=== PATIENT | male | born 1955 | race African-American/Black ===

== ENCOUNTER 2023-03-10 12:52 | Emergency (ER) | payer OTHER ==
[2023-03-10] MEDS ORDERED: SODIUM CHLORIDE 0.9% 500 ML INFUS.BAG IV ONE (13:48)
[2023-03-10] MEDS ORDERED: ACETAMINOPHEN 1000 MG/100 ML BAG IVPB ONE (13:48)
[2023-03-10] MEDS ORDERED: ONDANSETRON 4 MG/2 ML VIAL IVPUSH ONE (13:48)
[2023-03-10] MEDS ORDERED: FAMOTIDINE 20 MG/50 ML IVPB 20 MG/50 ML MG IVPB ONE ×2 (13:48→14:09)
[2023-03-10] MEDS ORDERED: ONDANSETRON 4 MG/2 ML VIAL ONE (14:09)
[2023-03-10] MEDS ORDERED: ACETAMINOPHEN INJECTION 100 ML IVPB ONE (14:09)
[2023-03-10 14:32] LABS: BASO % 0.5 % (0-2.0); EOS % 0.4 % (0-4.5); HEMATOCRIT 49.5 % (35.4-49); HEMOGLOBIN 16.8 GM/dL (11.7-16.9); LYMPH % 18.4 % (8-40); MCHC 33.9 g/dl (32.0-35.9); MEAN CELL VOLUME 88.5 fl (80-96); MONO % 5.9 % (3.8-10.2); NEUT % 74.8 % (42.8-82.8); RBC 5.59 M/mm3 (4.00-5.60); RDW 15.8 % (11.9-15.9); WHITE BLOOD COUNT 12.6 K/mm3 (4.0-10.0)
[2023-03-10 14:33] LABS: MEAN PLT VOLUME 8.1 fl (7.5-11.1); PLATELET COUNT 259 10^3/uL (134-434)
[2023-03-10 14:45] LABS: POTASSIUM 4.3 mmol/L (3.5-5.1)
[2023-03-10 14:49] LABS: ALBUMIN 4.3 g/dl (3.4-5.0); BLOOD UREA NITROGEN 10.6 mg/dL (7-18); CALCIUM 9.7 mg/dL (8.5-10.1)
[2023-03-10 14:52] LABS: CREATININE 1.4 mg/dL (0.55-1.3); PHOSPHOROUS 3.2 mg/dL (2.5-4.9)
[2023-03-10 14:53] LABS: BILIRUBIN,TOTAL 0.7 mg/dL (0.2-1); TOT PROT 8.9 g/dl (6.4-8.2)
[2023-03-10 15:11] VITALS: BP 139/93; PULSE 77; RESP 20; TEMP 98.3; BMI 30.1
== END 2023-03-10 19:01 | disposition home or self-care (01) ==
LOC: JER 12:52
PROC: 3E033GC Introduction of Other Therapeutic Substance into Peripheral Vein, Percutaneous Approach (ICD-10-PCS; principal; 2023-03-10)
PROC: 3E033GC Introduction of Other Therapeutic Substance into Peripheral Vein, Percutaneous Approach (ICD-10-PCS; 2023-03-10)
PROC: 3E033GC Introduction of Other Therapeutic Substance into Peripheral Vein, Percutaneous Approach (ICD-10-PCS; 2023-03-10)
DX: R53.1 Weakness (principal); R11.10 Vomiting, unspecified; K52.9 Noninfective gastroenteritis and colitis, unspecified
CPT/HCPCS: 36415; 74177-TC; 80053; 83690; 83735; 84100; 85025; 99285-25; Q9967

== ENCOUNTER 2024-03-09 13:11 | Emergency (ER) | payer OTHER ==
[2024-03-09 13:22] VITALS: RESP 16; BMI 26.6
[2024-03-09 14:59] LABS: BASO % 0.9 % (0-2.0); EOS % 0.2 % (0-4.5); HEMATOCRIT 46.4 % (35.4-49); HEMOGLOBIN 15.4 GM/dL (11.7-16.9); LYMPH % 19.4 % (8-40); MCH 29.9 pg (25.7-33.7); MCHC 33.2 g/dl (32.0-35.9); MEAN CELL VOLUME 89.8 fl (80-96); MEAN PLT VOLUME 8.3 fl (7.5-11.1); MONO % 5.3 % (3.8-10.2); NEUT % 74.2 % (42.8-82.8); PLATELET COUNT 416 10^3/uL (134-434); RBC 5.16 M/mm3 (4.00-5.60); RDW 16.1 % (11.9-15.9); WHITE BLOOD COUNT 10.3 K/mm3 (4.0-10.0)
[2024-03-09 15:22] LABS: CHLORIDE 97 mmol/L (98-107); SODIUM 133 mmol/L (136-145)
[2024-03-09 15:24] LABS: CALCIUM 9.7 mg/dL (8.5-10.1)
[2024-03-09 15:25] LABS: ALBUMIN 3.6 g/dl (3.4-5.0); BLOOD UREA NITROGEN 10.9 mg/dL (7-18); CO2 30 mmol/L (21-32); GLUCOSE,RANDOM 101 mg/dL (74-106); MAGNESIUM 2.8 mg/dL (1.8-2.4)
[2024-03-09 15:28] LABS: CREATININE 1.3 mg/dL (0.55-1.3); PHOSPHOROUS 3.8 mg/dL (2.5-4.9); SGOT/AST 59 U/L (15-37)
[2024-03-09 15:29] LABS: BILIRUBIN,TOTAL 0.6 mg/dL (0.2-1)
[2024-03-09 15:30] LABS: ANION GAP 5 mmol/L (4-13); POTASSIUM 6.1 mmol/L (3.5-5.1); SGPT/ALT 23 U/L (13-61); TOT PROT 8.3 g/dl (6.4-8.2)
[2024-03-09] MEDS: ONDANSETRON 4 MG/2 ML VIAL IVPUSH ONE (15:30)
[2024-03-09] MEDS: SODIUM CHLORIDE 0.9% 500 ML INFUS.BAG IV ONE (15:30)
[2024-03-09 15:31] LABS: ALK PHOS 66 U/L (45-117)
[2024-03-09] MEDS ORDERED: LOPERAMIDE HCL 2 MG CAPSULE ONE (16:36)
[2024-03-09] MEDS: LOPERAMIDE HCL 2 MG CAPSULE PO ONE (16:38)
[2024-03-09 16:45] VITALS: BP 128/78; PULSE 77; TEMP 98.4
== END 2024-03-09 16:45 | disposition home or self-care (01) ==
LOC: JER 13:11
PROC: 3E033GC Introduction of Other Therapeutic Substance into Peripheral Vein, Percutaneous Approach (ICD-10-PCS; principal; 2024-03-09)
DX: R11.2 Nausea with vomiting, unspecified (principal); R19.7 Diarrhea, unspecified; Z20.822 Contact with and (suspected) exposure to COVID-19
CPT/HCPCS: 0241U-QW; 36415; 80053; 83735; 84100; 84132; 85025; 99283-25

== ENCOUNTER 2024-10-03 00:14 | Inpatient (IN) | payer OTHER ==
[2024-10-03] MEDS ORDERED: ACETAMINOPHEN INJECTION 100 ML ONE (01:56)
[2024-10-03] MEDS ORDERED: FAMOTIDINE 20 MG/50 ML IVPB 20 MG/50 ML MG IVPB ONE (01:56)
[2024-10-03] MEDS: LACTATED RINGERS SOLUTION 1000 ML INFUS.BAG IV ONE (02:17)
[2024-10-03] MEDS: ACETAMINOPHEN 1000 MG/100 ML BAG IVPB ONE (02:18)
[2024-10-03 02:20] LABS: HEMATOCRIT 36.3 % (40.1-51.0); HEMOGLOBIN 11.5 g/dL (13.7-17.5); MCHC 31.7 g/dl (32.3-36.5); MEAN CELL VOLUME 85.8 fl (79.0-92.2); PLATELET COUNT 491 x10^3/uL (163-337); RDW 17.3 % (12.2-16.4)
[2024-10-03 02:28] LABS: INR 1.59 (0.83-1.09); PROTHROMBIN TIME (PATIENT) 17.3 SEC (9.7-13.0)
[2024-10-03 02:50] LABS: CHLORIDE 99 mmol/L (98-107); POTASSIUM 3.9 mmol/L (3.5-5.1); SODIUM 137 mmol/L (136-145)
[2024-10-03 02:52] LABS: LACTIC ACID 2.2 mmol/L (0.4-2.0)
[2024-10-03 02:53] LABS: CALCIUM 8.8 mg/dL (8.5-10.1)
[2024-10-03 02:54] LABS: ALBUMIN 2.1 g/dl (3.4-5.0); ANION GAP 7 mmol/L (4-13); BLOOD UREA NITROGEN 24.8 mg/dL (7-18); CO2 30 mmol/L (21-32); GLUCOSE,RANDOM 131 mg/dL (74-106); MAGNESIUM 1.7 mg/dL (1.8-2.4)
[2024-10-03 02:56] LABS: SGOT/AST 14 U/L (15-37); SGPT/ALT 13 U/L (13-61)
[2024-10-03 02:58] LABS: BILIRUBIN,TOTAL 0.8 mg/dL (0.2-1); TOT PROT 7.2 g/dl (6.4-8.2)
[2024-10-03 02:59] LABS: ALK PHOS 60 U/L (45-117)
[2024-10-03] MEDS ORDERED: PIPERACILLIN/TAZOB 4.5 GM 4.5 GM/100 ML BAG IVPB ONE (03:12)
[2024-10-03] MEDS ORDERED: VANCOMYCIN 1 GM PREMIX (F) 1 GM/200 ML BAG ONE (03:12)
[2024-10-03] MEDS: FAMOTIDINE 20 MG/50 ML IVPB 20 MG/50 ML MG IVPB ONE (03:23)
[2024-10-03] MEDS: PIPERACILLIN/TAZOBACTAM 4.5 GM VIAL IVPB ONE (05:00)
[2024-10-03 05:08] LABS: EPI CELLS 15 /uL (0-25.1); HYALINE CASTS 2 /uL (0-3.1); PH,URINE 5.5 (5.0-8.0); URINE APPEARANCE CLEAR; URINE BACTERIA 3 /uL (0-1359); URINE BILIRUBIN NEGATIVE (NEGATIVE); URINE COLOR YELLOW; URINE GLUCOSE (UA) 3+ (NEGATIVE); URINE KETONE TRACE (NEGATIVE); URINE LEUK ESTERASE NEGATIVE (NEGATIVE); URINE NITRITE NEGATIVE (NEGATIVE); URINE PROTEIN 1+ (NEGATIVE); URINE RBC 18 /uL (0-23.9); URINE WBC 22 /uL (0-25.8)
[2024-10-03] MEDS: VANCOMYCIN 1,000 MG in DEXTROSE 5%-WATER - 500 ML IVPB ONE (05:35)
[2024-10-03] MEDS ORDERED: ACETAMINOPHEN 325 MG TABLET (FP) ONE (06:37)
[2024-10-03] MEDS: ACETAMINOPHEN 325 MG TABLET (FP) PO ONE (06:40)
[2024-10-03] MEDS: DEXTROSE 5%-0.45% SALINE 1,000 ML IV SCH (07:28)
[2024-10-03] MEDS ORDERED: MAGNESIUM SULFATE IN WATER 2 GM/50 ML IVPB IVPB ONE (07:30)
[2024-10-03] MEDS: MAGNESIUM SULFATE IN WATER 2 GM/50 ML IVPB IVPB ONE (07:31)
[2024-10-03 09:07] LABS: COCAINE, UR NEGATIVE (NEGATIVE); URINE AMPHETAMINES NEGATIVE (NEGATIVE); URINE BARBITURATES NEGATIVE (NEGATIVE); URINE BENZODIAZEPINES NEGATIVE (NEGATIVE)
[2024-10-03 09:08] LABS: OPIATES, URI NEGATIVE (NEGATIVE); PHENCYCLIDINE,URINE NEGATIVE (NEGATIVE)
[2024-10-03 09:10] LABS: METHADONE, UR POSITIVE (NEGATIVE)
[2024-10-03] MEDS: PIPERACILLIN/TAZOB 4.5 GM 4.5 GM in DEXTROSE 5%-WATER 100 ML IVPB SCH ×2 (10:05→16:58)
[2024-10-03] MEDS: ENOXAPARIN NA (PORCINE) 40 MG/0.4 ML DISP.SYRIN SQ SCH (10:12)
[2024-10-03] MEDS ORDERED: PIPERACILLIN/TAZOB 4.5 GM 4.5 GM/100 ML BAG IVPB SCH (11:03)
[2024-10-03] MEDS: ONDANSETRON 4 MG/2 ML VIAL IVPUSH ONE (12:13)
[2024-10-03 14:28] VITALS: BMI 15.2
[2024-10-03] MEDS: PIPERACILLIN/TAZOB 4.5 GM 4.5 GM/100 ML BAG IVPB SCH (15:29)
[2024-10-03] MEDS: LORazepam 1 MG TABLET PO ONE (16:46)
[2024-10-03] MEDS: LORazepam 2 MG/ML SDV VIAL IVPUSH PRN (20:55)
[2024-10-03] MEDS: PIPERACILLIN/TAZOB 2.25 GM 2.25 GM/50 ML BAG IVPB SCH (23:29)
[2024-10-04] MEDS: ALBUTEROL SO4 2.5/IPRATROPIUM 0.5 INH SOL 3 ML VIAL.NEB. NEB PRN (03:11)
[2024-10-04 05:59] LABS: ARTERIAL BLD GAS O2 SATURATION 96.5 % (95-98); ARTERIAL BLOOD GAS BASE EXCESS 3.2 mmol/L (-2-2); ARTERIAL BLOOD GAS pH 7.515 (7.350-7.450)
[2024-10-04] MEDS ORDERED: VANCOMYCIN 500 MG in DEXTROSE 5%-WATER 100 ML IVPB SCH (06:00)
[2024-10-04] MEDS ORDERED: VANCOMYCIN 500 MG in DEXTROSE 5%-WATER - 100 ML IVPB SCH (06:00)
[2024-10-04] MEDS: methylPREDNISolone NA SUCC 125 MG/2 ML VIAL IVPUSH ONE (06:34)
[2024-10-04] MEDS: FUROSEMIDE 40 MG/4 ML INJECTABLE VIAL IVPUSH ONE (06:34)
[2024-10-04] MEDS ORDERED: DEXMEDETOMIDINE PREMIX 400 MCG/100 ML BAG IVPB ONE (07:01)
[2024-10-04 08:23] LABS: ARTERIAL BLD GAS O2 SATURATION 96.3 % (95-98); ARTERIAL BLOOD GAS PO2 71.4 mmHg (80-100); ARTERIAL BLOOD GAS pH 7.552 (7.350-7.450)
[2024-10-04 08:28] LABS: ALLENS TEST POSITIVE
[2024-10-04] MEDS ORDERED: RAPID SEQUENCE INTUBATION KIT NR ONE (08:33)
[2024-10-04] MEDS: PROPOFOL 1,000,000 MCG/100 ML VIAL IVPB SCH (09:19)
[2024-10-04] MEDS ORDERED: FENTANYL IVPB 500 MCG/100 ML BAG IVPB SCH (09:30)
[2024-10-04 09:31] LABS: HEMATOCRIT 40.6 % (40.1-51.0); HEMOGLOBIN 13.1 g/dL (13.7-17.5); MCHC 32.3 g/dl (32.3-36.5); MEAN CELL VOLUME 83.9 fl (79.0-92.2); MEAN PLT VOLUME 9.4 fl (9.4-12.4); PLATELET COUNT 517 x10^3/uL (163-337); RDW 17.3 % (12.2-16.4)
[2024-10-04] MEDS: MUPIROCIN 2% TOPICAL OINTMENT FOR DECOLONIZATION NS SCH (09:44)
[2024-10-04] MEDS: FENTANYL NS IVPB 500 MCG/100 ML BAG IVPB SCH (09:44)
[2024-10-04] MEDS: DEXMEDETOMIDINE PREMIX 400 MCG/100 ML BAG IVPB SCH (09:46)
[2024-10-04 09:57] LABS: CHLORIDE 103 mmol/L (98-107); SODIUM 140 mmol/L (136-145)
[2024-10-04 10:00] LABS: POTASSIUM 2.8 mmol/L (3.5-5.1)
[2024-10-04] MEDS: KCL 10 MEQ IVPB 10 MEQ/100 ML INFUS.BAG IVPB SCH (10:19)
[2024-10-04 10:54] LABS: ALBUMIN 2.2 g/dl (3.4-5.0); ANION GAP 11 mmol/L (4-13); BLOOD UREA NITROGEN 19.8 mg/dL (7-18); CALCIUM 9.4 mg/dL (8.5-10.1); CO2 26 mmol/L (21-32); GLUCOSE,RANDOM 147 mg/dL (74-106)
[2024-10-04 10:58] LABS: BILIRUBIN,TOTAL 0.7 mg/dL (0.2-1); CREATININE 0.8 mg/dL (0.55-1.3); SGOT/AST 19 U/L (15-37); SGPT/ALT 16 U/L (13-61); TOT PROT 7.7 g/dl (6.4-8.2)
[2024-10-04 11:07] LABS: ALK PHOS 69 U/L (45-117)
[2024-10-04 12:14] LABS: ARTERIAL BLD GAS O2 SATURATION 99.3 % (95-98); ARTERIAL BLOOD GAS BASE EXCESS 2.2 mmol/L (-2-2); ARTERIAL BLOOD GAS pH 7.489 (7.350-7.450)
[2024-10-04 12:17] LABS: ALLENS TEST POSITIVE; VENT MODE A/C; VENT RATE 12
[2024-10-04] MEDS ORDERED: ALBUTEROL SO4 2.5/IPRATROPIUM 0.5 INH SOL 3 ML VIAL.NEB. NEB PRN (12:21)
[2024-10-04] MEDS: THIAMINE HCL 200 MG/2 ML VIAL IVPB SCH (13:13)
[2024-10-04] MEDS: PIPERACILLIN/TAZOB 2.25 GM 2.25 GM/50 ML BAG IVPB SCH (13:13)
[2024-10-04] MEDS: MAGNESIUM 1GM/D5W - 1 GM/100 ML IVPB IVPB ONE (14:14)
[2024-10-04] MEDS: POTASSIUM CHLORIDE ORAL LIQUID 20 MEQ/15 ML PO ONE (14:15)
[2024-10-04] MEDS: DEXTROSE 5%-0.45% SALINE 1,000 ML IV SCH (14:15)
[2024-10-04] MEDS: ALBUTEROL SO4 2.5/IPRATROPIUM 0.5 INH SOL 3 ML VIAL.NEB. NEB SCH (20:10)
[2024-10-04] MEDS: CHLORHEXIDINE GLUCONATE 4% CLEANSER FOR DECOLONIZATION TP SCH (21:52)
[2024-10-04 22:16] VITALS: TEMP 98.2
[2024-10-05 00:18] VITALS: BP 98/73; PULSE 110
[2024-10-05 03:56] VITALS: RESP 20
[2024-10-05] MEDS ORDERED: ENOXAPARIN NA (PORCINE) 40 MG/0.4 ML DISP.SYRIN SQ SCH (10:00)
[2024-10-05] MEDS ORDERED: methylPREDNISolone NA SUCC 40 MG/1 ML VIAL IVPUSH SCH (10:00)
== END 2024-10-05 04:15 | disposition expired | DRG 871 ==
LOC: JER 00:14 → JERBED 05:10 → J5S 08:17 → JICU 10-04 06:48
PROVIDERS: ADMIT Internal Medicine; ATTEND Internal Medicine
PROC: 5A1945Z Respiratory Ventilation, 24-96 Consecutive Hours (ICD-10-PCS; principal; 2024-10-04)
PROC: 0BH17EZ Insertion of Endotracheal Airway into Trachea, Via Natural or Artificial Opening (ICD-10-PCS; 2024-10-04)
DX: A41.9 Sepsis, unspecified organism (principal); E43 Unspecified severe protein-calorie malnutrition; J18.9 Pneumonia, unspecified organism; J96.01 Acute respiratory failure with hypoxia; R64 Cachexia; Z68.1 Body mass index [BMI] 19.9 or less, adult; E87.20 Acidosis, unspecified; J44.1 Chronic obstructive pulmonary disease with (acute) exacerbation; I10 Essential (primary) hypertension; I25.10 Atherosclerotic heart disease of native coronary artery without angina pectoris; R62.7 Adult failure to thrive; L89.152 Pressure ulcer of sacral region, stage 2; L89.312 Pressure ulcer of right buttock, stage 2; I46.9 Cardiac arrest, cause unspecified; B19.20 Unspecified viral hepatitis C without hepatic coma; E87.6 Hypokalemia
CPT/HCPCS: 0241U-QW; 31500; 36415; 36600; 70450-TC; 71045-TC-FY; 71250-TC; 74177-TC; 80053; 80307; 81003; 82803; 82962; 83605; 83690; 83735; 84443; 84484; 85025; 85610; 85730; 86850; 86900; 86901; 87040; 87070; 87086; 87186; 87205; 87899; 93005; 93010; 94002; 94640; 99285-25; J0131